=== PATIENT | female | born 1955 | race Caucasian/White ===

== ENCOUNTER 2018-11-09 16:26 | Outpatient (CLI) ==
--- NOTE | 2018-11-09 17:13 | US ---
EXAM: Left lower extremity venous Doppler History: Left lower extremity swelling. Technique: Multiple sonographic images through the left lower extremity were obtained. Color duplex Doppler was used to interrogate vascular flow. Findings: The left common femoral, greater saphenous, profunda, superficial femoral, popliteal, damaris evy, posterior tibial and anterior tibial veins demonstrate spontaneous flow with normal compression and normal augmentation. Impression: No sonographic evidence for deep venous thrombosis
== END 2018-11-09 16:27 | disposition home or self-care (01) ==
LOC: RAD 16:26
PROVIDERS: ATTEND Nurse Practitioner
DX: R22.42 Localized swelling, mass and lump, left lower limb (principal)

== ENCOUNTER 2018-11-14 11:58 | Outpatient (CLI) ==
--- NOTE | 2018-11-14 14:26 | MRI ---
EXAM: MRI left knee without contrast. HISTORY: No known injury. Left knee pain and swelling. No left knee surgery reported. TECHNIQUE: Using a local extremity coil on a high field strength magnet multiplanar multisequence ma gnet resonance imaging performed of the left knee without intravenous or intra-articular gadolinium c ontrast. FINDINGS: I do not have prior radiographs of the left knee available for comparison at the time of t his dictation. Within the medial compartment there is some prominent remodeling with subchondral bone marrow edema b eneath the root insertion posterior horn medial meniscus which is otherwise intact. Area of changing slope along the superior articulating surface posterior horn compatible with tear. Some loss of ras p containment involving the medial meniscus with some extrusion along the medial meniscal body. Ther e is joint centered chondrosis with cartilage attenuation and surface irregularity weightbearing medi al compartment. Productive osteophyte formation. Within the lateral compartment the lateral meniscus is intact without discrete surfacing meniscal tea r.. Lateral compartment chondrosis without underlying subchondral edema. Productive osteophyte form ation. Within the patellofemoral compartment the patella seated. Patellar chondrosis/chondromalacia patella with diffuse cartilage attenuation/ulceration. Chondrosis with cartilage attenuation and surface ir regularity over the corresponding trochlear groove. Productive osteophyte formation. Small left effusion. Synovitis. 10 mm loose body posteriorly at the joint line. Intact ACL and PCL ligamentous fibers. The extensor mechanism is intact. The medial collateral ligament as well as la teral collateral ligament complex and posterolateral corner intact. Some extra capsular synovial/christina glion cyst formation posteriorly.. IMPRESSION: Area of changing slope along the superior articulating surface posterior horn medial men iscus compatible with tear. Some loss of hoop containment involving the medial meniscus with extrusi on along the medial meniscal body. Changes of tricompartmental osteoarthrosis, medial and patellofemoral compartment dominant, as descr ibed. Small left effusion. Synovitis. 10 mm loose body posteriorly at the joint line. Intact cruciate and collateral ligaments. Recommendation is obtainment and correlation with plain film radiographs of the left knee as none are available for comparison at the time of this dictation.
== END 2018-11-14 11:59 | disposition home or self-care (01) ==
LOC: RAD 11:58
PROVIDERS: ATTEND Nurse Practitioner
DX: M25.562 Pain in left knee (principal)